=== PATIENT | male | born 1965 | race Caucasian/White ===

== ENCOUNTER 2020-11-08 10:06 | Emergency (ER) | payer OTHER ==
[2020-11-08 11:00] LABS: INR 1.09 (0.9-1.2); PROTHROMBIN TIME 13.4 SECONDS (11.4-13.6); PTT 29.7 SECONDS (22.2-34.7)
[2020-11-08 11:17] LABS: BASOPHIL 0.4 % (0-2); CKMB 1.6 ng/mL (0.0-3.6); EOSINOPHIL 0.1 % (0-5); HCT 44.7 % (42.0-52.0); HGB 16.6 g/dl (13.2-18.0); LYMPHOCYTE 16.2 % (15-48); MCH 32.5 pg (25.0-31.0); MCHC 37.1 g/dL (32.0-36.0); MCV 87.5 fL (78.0-100.0); MONOCYTE 5.1 % (0-12); MPV 10.1 fL (6.0-9.5); NEUTROPHIL 77.9 % (41-80); NRBC 0; PLT 373 K/uL (150-400); RBC 5.11 M/uL (4.70-6.00); RDW 11.7 % (11.5-14.0); WBC 10.7 K/uL (4.0-10.5)
[2020-11-08 12:04] LABS: ALBUMIN 4.5 g/dL (3.4-5.0); BILIRUBIN - TOTAL 0.9 mg/dL (0.2-1.0); BUN/CREAT RATIO (CALC) 12.7 RATIO; CREATININE 1.1 mg/dL (0.67-1.17); GLOBULIN (CALCULATION) 3.3 g/dL; POTASSIUM 3.8 mmol/L (3.5-5.1); TOTAL PROTEIN 7.8 g/dL (6.4-8.2)
== END 2020-11-08 14:08 | disposition other institution (70) ==
LOC: FER 10:06
PROVIDERS: Emergency Medicine
DX: I62.9 Nontraumatic intracranial hemorrhage, unspecified (principal); R47.01 Aphasia; I16.1 Hypertensive emergency; R29.703 NIHSS score 3; Z91.013 Allergy to seafood
CPT/HCPCS: 36415; 70450; 70551; 71045; 80053; 80061; 82140; 82550; 82553; 83874; 84484; 85025; 85610; 85730; 93005; G0480

== ENCOUNTER 2021-03-31 17:25 | Emergency (ER) | payer OTHER | END 2021-03-31 23:36 | disposition home or self-care (01) | LOC: FER 17:25 | DX: S01.01XA Laceration without foreign body of scalp, initial encounter (principal); Z86.73 Personal history of transient ischemic attack (TIA), and cerebral infarction without residual deficits; Z23 Encounter for immunization; W19.XXXA Unspecified fall, initial encounter; W22.03XA Walked into furniture, initial encounter; Y92.009 Unspecified place in unspecified non-institutional (private) residence as the place of occurrence of the external cause | CPT/HCPCS: 70450; 72125; 90471; 90715 ==

== ENCOUNTER 2022-03-28 17:56 | Day surgery (SDCO) | payer OTHER ==
[~2022-03-28] VITALS: Ht 185.4 cm; Wt 81.6 kg
[2022-03-28 19:11] LABS: BASOPHIL 0.9 % (0-2); EOSINOPHIL 2.8 % (0-5); HCT 40.6 % (42.0-52.0); HGB 14.4 g/dl (13.2-18.0); LYMPHOCYTE 30.8 % (15-48); MCH 31.9 pg (25.0-31.0); MCHC 35.5 g/dL (32.0-36.0); MCV 89.8 fL (78.0-100.0); MONOCYTE 9.5 % (0-12); MPV 10.6 fL (6.0-9.5); NEUTROPHIL 55.6 % (41-80); NRBC 0; PLT 352 K/uL (150-400); RBC 4.52 M/uL (4.70-6.00); RDW 11.9 % (11.5-14.0); WBC 7.8 K/uL (4.0-10.5)
[2022-03-28 19:37] LABS: BILIRUBIN - TOTAL 0.5 mg/dL (0.2-1.0); BUN/CREAT RATIO (CALC) 27.3 RATIO; CREATININE 0.99 mg/dL (0.67-1.17); GLOBULIN (CALCULATION) 3.7 g/dL; POTASSIUM 6.3 mmol/L (3.5-5.1); TOTAL PROTEIN 7.7 g/dL (6.4-8.2)
[2022-03-28 19:47] LABS: CORONAVIRUS 2019 SARS-COV-2 NEGATIVE (NEGATIVE); INFLUENZA A NAA NEGATIVE (NEGATIVE)
[2022-03-28 20:35] LABS: BILIRUBIN NEGATIVE (NEGATIVE); BLOOD NEGATIVE Ery/uL (NEGATIVE); CLARITY CLEAR (CLEAR); COLOR YELLOW (YELLOW); GLUCOSE (U) NORMAL (NORMAL); LEUKOCYTES TRACE Leu/uL (NEGATIVE); NITRITE POSITIVE (NEGATIVE); PROTEIN NEGATIVE (NEGATIVE); SPECIFIC GRAVITY 1.015 (1.001-1.030); UROBILINOGEN 0.2 mg/dL (0.2-1.0)
[2022-03-28 20:41] LABS: BACTERIA 4+
[2022-03-28] MEDS ORDERED: AMOX TR-K CLV1 EAC4 PO (22:59)
[2022-03-29 01:01] LABS: CREATININE 0.92 mg/dL (0.67-1.17); POTASSIUM 3.6 mmol/L (3.5-5.1)
[2022-03-29 05:00] LABS: HCT 43.9 % (42.0-52.0); HGB 16.2 g/dl (13.2-18.0); MCH 32.8 pg (25.0-31.0); MCHC 36.9 g/dL (32.0-36.0); MCV 88.9 fL (78.0-100.0); MPV 10.1 fL (6.0-9.5); RBC 4.94 M/uL (4.70-6.00); RDW 11.8 % (11.5-14.0)
[2022-03-29 05:11] LABS: BUN/CREAT RATIO (CALC) 18.3 RATIO; CREATININE 0.93 mg/dL (0.67-1.17); POTASSIUM 3.7 mmol/L (3.5-5.1)
[2022-03-29] MEDS ORDERED: NIFEDIPINE ER90 M1 PO (05:32)
[2022-03-29] MEDS ORDERED: TIZANIDINE HCL2 MG PO (05:34)
[2022-03-29] MEDS ORDERED: ATORVASTATIN CA80 MG PO (05:34)
[2022-03-29] MEDS ORDERED: VITAMIN B-12500 MCG PO (05:35)
[2022-03-29] MEDS ORDERED: BACLOFEN10 MG PO (05:36)
[2022-03-29] MEDS ORDERED: ASPIRIN325 M1 PO (05:40)
[2022-03-29] MEDS ORDERED: LEVETIRACETAM500 M1 PO (05:41)
[2022-03-29] MEDS ORDERED: FLUOXETINE HCL20 MG PO (05:42)
[2022-03-29] MEDS ORDERED: MELATONIN5 M2 PO (05:43)
[2022-03-29] MEDS ORDERED: ACETAMINOPHEN325 MG PO (05:47)
[2022-03-29] MEDS ORDERED: ADALAT CC30 MG PO (06:22)
[2022-03-30 06:16] LABS: HCT 39.1 % (42.0-52.0); HGB 14.2 g/dl (13.2-18.0); MCH 32.6 pg (25.0-31.0); MCHC 36.3 g/dL (32.0-36.0); MCV 89.7 fL (78.0-100.0); MPV 10.1 fL (6.0-9.5); RBC 4.36 M/uL (4.70-6.00); RDW 11.9 % (11.5-14.0)
[2022-03-30 06:41] LABS: BUN/CREAT RATIO (CALC) 20.4 RATIO; CREATININE 1.13 mg/dL (0.67-1.17); POTASSIUM 3.9 mmol/L (3.5-5.1)
[2022-03-30] MEDS ORDERED: VITAMIN D325 MC1 PO (13:16)
[2022-03-31] MEDS ORDERED: CEFDINIR300 MG PO (17:08)
[2022-04-01 07:41] LABS: BASOPHIL 0.9 % (0-2); EOSINOPHIL 3.5 % (0-5); HCT 38.9 % (42.0-52.0); HGB 13.9 g/dl (13.2-18.0); LYMPHOCYTE 36.4 % (15-48); MCH 32.1 pg (25.0-31.0); MCHC 35.7 g/dL (32.0-36.0); MCV 89.8 fL (78.0-100.0); MONOCYTE 8.2 % (0-12); MPV 10.2 fL (6.0-9.5); NEUTROPHIL 50.7 % (41-80); NRBC 0; PLT 318 K/uL (150-400); RBC 4.33 M/uL (4.70-6.00); RDW 11.7 % (11.5-14.0); WBC 6.5 K/uL (4.0-10.5)
[2022-04-01 08:20] LABS: BUN/CREAT RATIO (CALC) 26.5 RATIO; CREATININE 1.02 mg/dL (0.67-1.17)
[2022-04-01] MEDS ORDERED: SACCHAROMYCES250 MG PO (08:55)
[2022-04-01] MEDS ORDERED: SENOKOT8.6 MG PO (08:55)
== END 2022-04-01 17:44 ==
LOC: FER 17:56 → FTCU 03-29 02:06 → FMS 03-29 15:35
PROVIDERS: Nurse Practitioner; Nurse Practitioner Acute Care; Nurse Practitioner Family; ADMIT Internal Medicine
DX: N30.00 Acute cystitis without hematuria (principal); B96.20 Unspecified Escherichia coli [E. coli] as the cause of diseases classified elsewhere; G93.41 Metabolic encephalopathy; R45.851 Suicidal ideations; I69.320 Aphasia following cerebral infarction; I69.351 Hemiplegia and hemiparesis following cerebral infarction affecting right dominant side; E87.5 Hyperkalemia; I11.9 Hypertensive heart disease without heart failure; R07.89 Other chest pain; E78.5 Hyperlipidemia, unspecified; F32.A Depression, unspecified; R56.9 Unspecified convulsions; Z66 Do not resuscitate; Z79.899 Other long term (current) drug therapy; Z91.013 Allergy to seafood; Z95.818 Presence of other cardiac implants and grafts; Z20.822 Contact with and (suspected) exposure to COVID-19
CPT/HCPCS: 36415; 70450; 71045; 80048; 80053; 81001; 84484; 85025; 87040; 87076; 87088; 87186; 92507; 92523; 93005; 94010; 97162; 97166; 97530; 97530-GP; 97535; G0378; J0696; J1650; J7030; U0002